=== PATIENT | female | born 1945 | race Caucasian/White ===

== ENCOUNTER 2017-12-28 07:12 | Emergency (ER) | payer MEDICARE, OTHER ==
[~2017-12-28] VITALS: Ht 160 cm; Wt 63.6 kg
[~2017-12-28 07:12] MED LIST: ACET-66 PO; MULT-248 PO; [UNRECOGNIZED DRUG - OTHER] PO
[2017-12-28 07:18] VITALS: BP 151/77
[2017-12-28] MEDS ORDERED: PYRI50TA9 PO (07:20)
[2017-12-28] MEDS ORDERED: EXEM25 PO (07:20)
[2017-12-28] MEDS ORDERED: AMLO2.5T3 PO (07:20)
[2017-12-28] MEDS ORDERED: METF-960 PO (07:20)
[2017-12-28 07:24] LABS: GLUCOSE,POINT OF CARE 134 MG/DL (70-110)
== END 2017-12-28 09:40 | disposition home or self-care (01) ==
LOC: EMS 07:13
DX: S46.002A Unspecified injury of muscle(s) and tendon(s) of the rotator cuff of left shoulder, initial encounter (principal); I10 Essential (primary) hypertension; E11.9 Type 2 diabetes mellitus without complications; Z88.0 Allergy status to penicillin; Z88.1 Allergy status to other antibiotic agents; Z79.899 Other long term (current) drug therapy; Z90.49 Acquired absence of other specified parts of digestive tract; X58.XXXA Exposure to other specified factors, initial encounter; Y93.K1 Activity, walking an animal; Y92.89 Other specified places as the place of occurrence of the external cause; Y99.8 Other external cause status
CPT/HCPCS: 99284

== ENCOUNTER 2018-04-13 14:56 | Emergency (ER) | payer MEDICARE, OTHER ==
[~2018-04-13] VITALS: Ht 160 cm; Wt 65.9 kg
[~2018-04-13 14:56] MED LIST changes: -ACET-66 PO; +AMLO2.5T4 PO; +EXEM25 PO; +METF-960 PO; -MULT-248 PO; +PYRI50TA9 PO; -[UNRECOGNIZED DRUG - OTHER] PO
[2018-04-13 15:09] LABS: GLUCOSE,POINT OF CARE 149 MG/DL (70-110)
[2018-04-13 15:38] LABS: APPEARANCE,URINE CLEAR (CLEAR); BILIRUBIN,URINE NEGATIVE (NEGATIVE); GLUCOSE, URINE (UA) NEGATIVE (NEGATIVE); KETONES,URINE TRACE mg/dL (NEGATIVE); LEUKOCYTE ESTERASE ,URINE NEGATIVE (NEGATIVE); NITRATE,URINE NEGATIVE (NEGATIVE); OCCULT BLOOD,URINE NEGATIVE (NEGATIVE); PROTEIN,URINE NEGATIVE (NEGATIVE); UROBILINOGEN,URINE 0.2 mg/dL (<=1.0)
[2018-04-13 15:50] LABS: BASOPHILS % (AUTO) 0.8 % (0.0-2.0); EOSINOPHILS % (AUTO) 5.6 % (1.0-6.0); HEMATOCRIT 40.7 % (36-46); HEMOGLOBIN 14.1 g/dL (12.0-16.0); LYMPHOCYTES # (AUTO) 2.7 K/uL (1.0-4.8); LYMPHOCYTES % (AUTO) 28.1 % (22.0-44.0); MEAN CORPUSCULAR HEMOGLOBIN 30.7 pg (26.0-34.0); MEAN CORPUSCULAR HGB CONC 34.6 G/dL (31.0-37.0); MEAN CORPUSCULAR VOLUME 89 fL (80-100); MONOCYTES # (AUTO) 0.9 K/uL (0.1-1.0); MONOCYTES % (AUTO) 9.6 % (2.0-9.0); NEUTROPHILS # (AUTO) 5.3 K/uL (1.8-7.7); NEUTROPHILS % (AUTO) 55.9 % (40.0-70.0); PLATELET COUNT (AUTO) 285 K/uL (150-450); RED BLOOD CELL COUNT(AUTO) 4.59 MIL/uL (4.00-5.20); RED CELL DISTRIBUTION WIDTH 13.8 % (11.5-14.5)
[2018-04-13 15:59] LABS: ANION GAP 11 mmol/L (8-16); CALCIUM, TOTAL 9.5 mg/dL (8.8-10.5); CARBON DIOXIDE 29 mmol/L (22-29); CHLORIDE 100 mmol/L (98-107); CREATININE 0.68 mg/dL (0.60-1.30); GLUCOSE,RANDOM 139 mg/dL (70-110); POTASSIUM 3.8 mmol/L (3.5-5.1); SODIUM SERUM 140 mmol/L (136-145); UREA NITROGEN, BLOOD 12 mg/dL (7-18)
[2018-04-13 16:01] LABS: GLOMERULAR FILTR. RATE CALC > 60 mL/min (>60)
[2018-04-13 16:04] LABS: ALANINE AMINOTRANSFERASE 34 U/L (12-78); ALBUMIN 3.7 g/dL (3.4-5.0); ALKALINE PHOSPHATASE 90 U/L (46-116); ASPARTATE AMINOTRANSFERASE 26 U/L (15-37); BILIRUBIN,TOTAL 0.4 mg/dL (0.1-1.0); LIPASE 209 U/L (73-393); TOTAL PROTEIN, SERUM 7.3 g/dL (6.4-8.2)
[2018-04-13 17:14] VITALS: BP 145/77
== END 2018-04-13 17:18 | disposition home or self-care (01) ==
LOC: EMS 14:56
DX: K86.2 Cyst of pancreas (principal); E11.9 Type 2 diabetes mellitus without complications; I10 Essential (primary) hypertension; Z90.49 Acquired absence of other specified parts of digestive tract; Z88.0 Allergy status to penicillin; Z88.1 Allergy status to other antibiotic agents; Z79.84 Long term (current) use of oral hypoglycemic drugs
CPT/HCPCS: 74176

== ENCOUNTER 2018-08-25 06:35 | Emergency (ER) | payer MEDICARE, OTHER ==
[~2018-08-25] VITALS: Ht 160 cm; Wt 68.2 kg
[~2018-08-25 06:35] MED LIST changes: -EXEM25 PO; -PYRI50TA9 PO
[2018-08-25] MEDS ORDERED: METF-445 PO (06:48)
[2018-08-25] MEDS ORDERED: AMLO-511 PO (06:48)
[2018-08-25 06:49] LABS: GLUCOSE,POINT OF CARE 192 MG/DL (70-110)
[2018-08-25] MEDS ORDERED: KETOROLAC TROMETHAMINE 30 MG/ML VIAL IM ONE (09:45)
[2018-08-25 11:30] VITALS: BP 149/70
== END 2018-08-25 11:43 | disposition home or self-care (01) ==
LOC: EMS 06:37
DX: S70.01XA Contusion of right hip, initial encounter (principal); E11.9 Type 2 diabetes mellitus without complications; I10 Essential (primary) hypertension; Z88.0 Allergy status to penicillin; Z88.1 Allergy status to other antibiotic agents; Z90.49 Acquired absence of other specified parts of digestive tract; Z79.899 Other long term (current) drug therapy; W01.0XXA Fall on same level from slipping, tripping and stumbling without subsequent striking against object, initial encounter; Y93.89 Activity, other specified; Y92.89 Other specified places as the place of occurrence of the external cause; Y99.8 Other external cause status
CPT/HCPCS: 73502; 82962; 96372; 99283; J1885

== ENCOUNTER 2018-11-10 18:00 | Emergency (ER) | payer MEDICARE, OTHER ==
[~2018-11-10] VITALS: Ht 160 cm; Wt 65.9 kg
[~2018-11-10 18:00] MED LIST changes: -AMLO2.5T4 PO; +AMLO5TAB9 PO; +METF-445 PO; -METF-960 PO
[2018-11-10] MEDS ORDERED: BIMA12.5OS OU (18:12)
[2018-11-10] MEDS ORDERED: SIMV-259 PO (18:12)
[2018-11-10 18:22] LABS: GLUCOSE,POINT OF CARE 171 MG/DL (70-110)
[2018-11-10] MEDS ORDERED: FLUORESCEIN SODIUM 1 MG STRIP OU ONE (19:00)
[2018-11-10] MEDS ORDERED: PROPARACAINE HCL 0.5% 15 ML OPHTHALMIC SOLUTION OU ONE (19:00)
[2018-11-10] MEDS ORDERED: ERYTHROMYCIN 0.5% 3.5 GM TUBE OPHTHALMIC OINTMENT OD ONE (19:30)
[2018-11-10 20:28] VITALS: BP 145/80
== END 2018-11-10 20:29 | disposition home or self-care (01) ==
LOC: EMS 18:02
DX: S05.01XA Injury of conjunctiva and corneal abrasion without foreign body, right eye, initial encounter (principal); E11.39 Type 2 diabetes mellitus with other diabetic ophthalmic complication; H40.9 Unspecified glaucoma; I10 Essential (primary) hypertension; Z90.49 Acquired absence of other specified parts of digestive tract; Z79.899 Other long term (current) drug therapy; Z88.0 Allergy status to penicillin; Z88.1 Allergy status to other antibiotic agents; X58.XXXA Exposure to other specified factors, initial encounter; Y93.89 Activity, other specified; Y92.89 Other specified places as the place of occurrence of the external cause; Y99.8 Other external cause status

== ENCOUNTER → 2019-01-19 | Outpatient (CLI) | payer MEDICARE, OTHER ==
[~2019-01-19] MED LIST changes: +BIMA12.5OS OU; +SIMV-259 PO
== END | disposition home or self-care (01) ==
LOC: RADPV 14:45
PROVIDERS: ATTEND Internal Medicine
DX: Z01.818 Encounter for other preprocedural examination (principal); I70.0 Atherosclerosis of aorta; J98.4 Other disorders of lung

== ENCOUNTER → 2019-11-09 | Outpatient (CLI) | payer MEDICARE, OTHER ==
[~2019-11-09] MED LIST changes: +AMLO-257 PO; -AMLO5TAB9 PO
== END | disposition home or self-care (01) ==
LOC: RADPV 09:21
PROVIDERS: ATTEND Internal Medicine
DX: S46.812A Strain of other muscles, fascia and tendons at shoulder and upper arm level, left arm, initial encounter (principal); E78.00 Pure hypercholesterolemia, unspecified; E11.9 Type 2 diabetes mellitus without complications; J47.9 Bronchiectasis, uncomplicated; I10 Essential (primary) hypertension; R20.2 Paresthesia of skin; E78.5 Hyperlipidemia, unspecified; Z91.14 Patient's other noncompliance with medication regimen; X58.XXXA Exposure to other specified factors, initial encounter; Y92.89 Other specified places as the place of occurrence of the external cause; Y93.89 Activity, other specified; Y99.8 Other external cause status
CPT/HCPCS: 76830; 76856

== ENCOUNTER 2020-09-27 15:58 | Emergency (ER) | payer MEDICARE, OTHER ==
[~2020-09-27] VITALS: Ht 157.5 cm; Wt 61.4 kg
[2020-09-27] MEDS ORDERED: ASPIRIN 325 MG TABLET PO ONE ×2 (17:30→18:00)
[2020-09-27 17:36] LABS: BASOPHILS % (AUTO) 0.9 % (0.0-2.0); EOSINOPHILS % (AUTO) 5.7 % (1.0-6.0); HEMATOCRIT 36.6 % (36-46); LYMPHOCYTES # (AUTO) 2.5 K/uL (1.0-4.8); MEAN CORPUSCULAR HEMOGLOBIN 29.6 pg (26.0-34.0); MEAN CORPUSCULAR HGB CONC 32.8 G/dL (31.0-37.0); MEAN CORPUSCULAR VOLUME 90 fL (80-100); MONOCYTES # (AUTO) 0.9 K/uL (0.1-1.0); MONOCYTES % (AUTO) 10.5 % (2.0-9.0); NEUTROPHILS # (AUTO) 4.8 K/uL (1.8-7.7); NEUTROPHILS % (AUTO) 54.9 % (40.0-70.0); PLATELET COUNT (AUTO) 293 K/uL (150-450); RED BLOOD CELL COUNT(AUTO) 4.06 MIL/uL (4.00-5.20); RED CELL DISTRIBUTION WIDTH 13.9 % (11.5-14.5)
[2020-09-27 17:46] LABS: ANION GAP 7 mmol/L (8-16); CALCIUM, TOTAL 9.5 mg/dL (8.8-10.5); CARBON DIOXIDE 31 mmol/L (22-29); CHLORIDE 105 mmol/L (98-107); CREATININE 0.68 mg/dL (0.60-1.30); GLUCOSE,RANDOM 122 mg/dL (70-110); POTASSIUM 3.8 mmol/L (3.5-5.1); SODIUM SERUM 143 mmol/L (136-145); UREA NITROGEN, BLOOD 9 mg/dL (7-18)
[2020-09-27 17:47] LABS: GLOMERULAR FILTR. RATE CALC > 60 mL/min (>60)
[2020-09-27 17:53] LABS: ALANINE AMINOTRANSFERASE 23 U/L (12-78); ALBUMIN 4.1 g/dL (3.4-5.0); ALKALINE PHOSPHATASE 75 U/L (46-116); ASPARTATE AMINOTRANSFERASE 21 U/L (15-37); BILIRUBIN,TOTAL 0.5 mg/dL (0.1-1.0); TOTAL PROTEIN, SERUM 7.2 g/dL (6.4-8.2)
[2020-09-27] MEDS ORDERED: ASPIRIN 81 MG CHEWABLE TABLET PO ONE (18:15)
[2020-09-27 18:51] VITALS: BP 151/74
== END 2020-09-27 19:21 | disposition home or self-care (01) ==
LOC: EMS 15:58
DX: G45.9 Transient cerebral ischemic attack, unspecified (principal); E11.9 Type 2 diabetes mellitus without complications; I10 Essential (primary) hypertension; Z90.89 Acquired absence of other organs; Z88.0 Allergy status to penicillin; Z88.5 Allergy status to narcotic agent; Z79.84 Long term (current) use of oral hypoglycemic drugs
CPT/HCPCS: 70450; 70551; 80053; 82962; 84484; 85025; 93005; 99285

== ENCOUNTER 2021-06-25 08:47 | Emergency (ER) | payer MEDICARE, OTHER ==
[~2021-06-25] VITALS: Ht 157.5 cm; Wt 54.5 kg
[~2021-06-25 08:47] MED LIST changes: -BIMA12.5OS OU; +BIMA2.5D4 OU
[2021-06-25] MEDS ORDERED: LIDOCAINE 5% TRANSDERMAL PATCH TD ONE (09:15)
[2021-06-25] MEDS ORDERED: CYCLOBENZAPRINE HCL 10 MG TABLET PO ONE (09:15)
[2021-06-25] MEDS ORDERED: ACETAMINOPHEN 325 MG TABLET PO ONE (09:15)
[2021-06-25 10:18] VITALS: BP 152/70
== END 2021-06-25 10:26 | disposition home or self-care (01) ==
LOC: EMS 08:51
DX: M54.16 Radiculopathy, lumbar region (principal); I10 Essential (primary) hypertension; E11.9 Type 2 diabetes mellitus without complications; Z88.0 Allergy status to penicillin; Z88.1 Allergy status to other antibiotic agents; Z79.899 Other long term (current) drug therapy
CPT/HCPCS: 82962; 99284

== ENCOUNTER 2022-01-09 07:18 | Emergency (ER) | payer MEDICARE, OTHER ==
[~2022-01-09] VITALS: Ht 157.5 cm; Wt 56.8 kg
[2022-01-09] MEDS ORDERED: ATOR10TA69 PO (07:37)
[2022-01-09] MEDS ORDERED: ASPI81TA87 PO (07:37)
[2022-01-09 08:11] LABS: BASOPHILS % (AUTO) 0.7 % (0.0-2.0); EOSINOPHILS % (AUTO) 4.5 % (1.0-6.0); LYMPHOCYTES # (AUTO) 1.6 K/uL (1.0-4.8); LYMPHOCYTES % (AUTO) 22.7 % (22.0-44.0); MEAN CORPUSCULAR HEMOGLOBIN 30.8 pg (26.0-34.0); MEAN CORPUSCULAR HGB CONC 33.4 G/dL (31.0-37.0); MEAN CORPUSCULAR VOLUME 92 fL (80-100); MONOCYTES # (AUTO) 0.7 K/uL (0.1-1.0); MONOCYTES % (AUTO) 10.2 % (2.0-9.0); NEUTROPHILS # (AUTO) 4.4 K/uL (1.8-7.7); NEUTROPHILS % (AUTO) 61.9 % (40.0-70.0); PLATELET COUNT (AUTO) 290 K/uL (150-450); RED CELL DISTRIBUTION WIDTH 13.9 % (11.5-14.5)
[2022-01-09 08:23] LABS: B-TYPE NATRIURETIC PEPTIDE 20 pg/mL (0-100)
[2022-01-09 08:24] LABS: COVID AG,FIA SOURCE NASOPHARYNGEAL
[2022-01-09 08:30] LABS: ANION GAP 4 mmol/L (8-16); CALCIUM, TOTAL 9.6 mg/dL (8.8-10.5); CARBON DIOXIDE 32 mmol/L (22-29); CHLORIDE 104 mmol/L (98-107); CREATININE 0.77 mg/dL (0.60-1.30); GLOMERULAR FILTR. RATE CALC > 60 mL/min (>60); GLUCOSE,RANDOM 209 mg/dL (70-110); POTASSIUM 4.3 mmol/L (3.5-5.1); SODIUM SERUM 140 mmol/L (136-145); UREA NITROGEN, BLOOD 13 mg/dL (7-18)
[2022-01-09 08:32] LABS: MAGNESIUM 2.1 mg/dL (1.80-2.40); PHOSPHORUS 3.2 mg/dL (2.5-4.9)
[2022-01-09 08:52] LABS: ALANINE AMINOTRANSFERASE 18 U/L (12-78); ALBUMIN 3.8 g/dL (3.4-5.0); ALKALINE PHOSPHATASE 74 U/L (46-116); ASPARTATE AMINOTRANSFERASE 17 U/L (15-37); BILIRUBIN,TOTAL 0.5 mg/dL (0.1-1.0); CREATINE KINASE, TOTAL ONLY 77 U/L (26-192); TOTAL PROTEIN, SERUM 7.3 g/dL (6.4-8.2)
[2022-01-09 09:52] VITALS: BP 133/72
== END 2022-01-09 10:25 | disposition home or self-care (01) ==
LOC: EMS 07:19
DX: R06.02 Shortness of breath (principal); Z20.822 Contact with and (suspected) exposure to COVID-19; E11.9 Type 2 diabetes mellitus without complications; I10 Essential (primary) hypertension; Z86.73 Personal history of transient ischemic attack (TIA), and cerebral infarction without residual deficits; Z90.89 Acquired absence of other organs; Z90.710 Acquired absence of both cervix and uterus; Z88.0 Allergy status to penicillin
CPT/HCPCS: 71045; 80053; 82550; 83735; 83880; 84100; 84484; 85025; 93005; 99285; 36415-L1; 36415-TC

== ENCOUNTER 2022-05-12 07:39 | Emergency (ER) | payer MEDICARE, OTHER ==
[~2022-05-12] VITALS: Ht 157.5 cm; Wt 59.1 kg
[~2022-05-12 07:39] MED LIST changes: +ASPI81TA87 PO; +ATOR10TA69 PO; -SIMV-259 PO
[2022-05-12] MEDS: TraMADol HCL 50 MG TABLET PO ONE (08:27)
[2022-05-12] MEDS ORDERED: TRAM-559 PO (09:47)
[2022-05-12 09:53] VITALS: BP 156/82
== END 2022-05-12 09:54 | disposition home or self-care (01) ==
LOC: EMS 07:45
DX: M25.551 Pain in right hip (principal); M16.11 Unilateral primary osteoarthritis, right hip; E11.9 Type 2 diabetes mellitus without complications; I10 Essential (primary) hypertension; Z90.49 Acquired absence of other specified parts of digestive tract; Z88.0 Allergy status to penicillin; Z88.8 Allergy status to other drugs, medicaments and biological substances
CPT/HCPCS: 73502; 99283

== ENCOUNTER 2024-10-25 16:35 | Emergency (ER) | payer MEDICARE, OTHER ==
[~2024-10-25] VITALS: Ht 157.5 cm; Wt 61.4 kg
[~2024-10-25 16:35] MED LIST changes: -AMLO-257 PO; +AMLO2.5T96 PO; -BIMA2.5D4 OU; -METF-445 PO
[2024-10-25 16:41] VITALS: TEMP 98.7
[2024-10-25] MEDS ORDERED: PREGABALIN 50 MG CAPSULE PO ONE (17:15)
[2024-10-25] MEDS: ACETAMINOPHEN/CODEINE 300-30 MG TABLET PO ONE (17:36)
[2024-10-25] MEDS: METOCLOPRAMIDE HCL 10 MG TABLET PO ONE (17:37)
[2024-10-25 18:35] VITALS: BP 156/87; PULSE 99; RESP 18; O2SAT 98
[2024-10-25] MEDS ORDERED: ACET-2080 PO ×3 (18:41→18:50)
== END 2024-10-25 19:00 | disposition home or self-care (01) ==
LOC: EMS 16:35
DX: G50.0 Trigeminal neuralgia (principal); I10 Essential (primary) hypertension; Z86.73 Personal history of transient ischemic attack (TIA), and cerebral infarction without residual deficits; Z90.49 Acquired absence of other specified parts of digestive tract; Z90.710 Acquired absence of both cervix and uterus; Z88.1 Allergy status to other antibiotic agents; Z88.0 Allergy status to penicillin; Z79.82 Long term (current) use of aspirin; Z79.899 Other long term (current) drug therapy
CPT/HCPCS: 99283